=== PATIENT | female | born 1985 | race Hispanic/Latino ===

== ENCOUNTER 2018-04-03 19:24 | Emergency (ER) | payer MEDICAID, OTHER ==
[2018-04-03 19:33] VITALS: TEMP 98
[2018-04-03] MEDS ORDERED: Oxycodone/Acetaminophen 5/325 mg Tab PO ONE (20:29)
[2018-04-03] MEDS ORDERED: Oxycodone/Acetaminophen 5/325 mg Tab ONE (20:34)
--- NOTE | 2018-04-03 22:04 | ED PDOC ---
HPI: Trauma/Fall - HPI Time Seen by Provider: 04/03/18 20:00 Chief Complaint (Nursing): Trauma Chief Complaint (Provider): Fall History Per: Patient History/Exam Limitations: no limitations Injury Occurred (Timing): Just Before Arrival Location Of Injury: Left: Elbow, Foot Additional Complaint(s): 32 year old female with a history of rheumatoid arthritis presents to the ED with left sided foot and elbow pain s/p fall that occurred minutes prior to arrival. Patient was mopping and slipped on left side, hitting her elbow. Took no medications for pain. Patient offers no other complaints. PMD: Dr. cassie Arceo Past Medical History Reviewed: Historical Data, Nursing Documentation, Vital Signs Vital Signs: Last Vital Signs Temp 98 F 04/03/18 19:30 Pulse 89 04/04/18 06:05 Resp 16 04/04/18 06:05 BP 121/82 04/04/18 06:05 Pulse Ox 96 04/04/18 06:05 - Surgical History Surgical History: No Surg Hx - Family History Family History: States: Unknown Family Hx - Social History Current smoker - smoking cessation education provided: No Alcohol: None Drugs: Denies - Home Medications Home Medications: Ambulatory Orders Medication Instructions Recorded traMADol [Ultram] 50 mg PO Q6 PRN #16 tab 04/04/18 - Allergies Allergies/Adverse Reactions: Allergies Allergy/AdvReac Type Severity Reaction Status Date / Time acetaminophen [From Vicodin] Allergy RASH Verified 04/03/18 19:30 hydrocodone [From Vicodin] Allergy RASH Verified 04/03/18 19:30 Review of Systems Musculoskeletal: Positive for: Arm Pain (left elbow ), Foot Pain (left foot ) Physical Exam - Reviewed Nursing Documentation Reviewed: Yes Vital Signs Reviewed: Yes - Physical Exam Appears: Positive for: Non-toxic, No Acute Distress Head Exam: Positive for: ATRAUMATIC, NORMAL INSPECTION, NORMOCEPHALIC Skin: Positive for: Normal Color, Warm, DRY Eye Exam: Positive for: EOMI, Normal appearance, PERRL ENT: Positive for: Normal ENT Inspection Neck: Positive for: Normal Cardiovascular/Chest: Positive for: Regular Rate, Rhythm Respiratory: Positive for: Normal Breath Sounds Gastrointestinal/Abdominal: Positive for: Soft Extremity: Positive for: Normal ROM (normal ROM at left foot; no swelling or limitation of ROM of left foot or ankle. neurovascular intact. L elbow appears deformed possible dislocated. neurovascular intact, pulses 2+, normal temp, warm and dry. cap refill less than 2 sec.) Neurologic/Psych: Positive for: Alert, Oriented - Laboratory Results Result Diagrams: 04/03/18 22:29 04/03/18 22:29 - ECG O2 Sat by Pulse Oximetry: 100 ( ) Pulse Ox Interpretation: Normal Medical Decision Making Medical Decision Making: Time: 20:29 Impression: left foot and elbow pain rule out fracture and dislocation. Initial Plan; --Left elbow x-ray --Left foot x-ray --Percocet 1 tab PO 22:29 --CBC --CMP --Beta HCG --Morphine 4 mg IV pt states she is only allergic to VICODIN, not PERCOCET MORPHINE OR DILAUDID Time: 22:44 ([facility] reading) Left Foot xr FINDINGS: Bones/joints: No acute fracture. Normal alignment. No ankle effusion. Metallic plate and screws transfixing the distal fibula and lateral malleolus. No evident acute hardware complications. Soft tissues: No evident soft tissue swelling. No radiopaque foreign body. IMPRESSION: No acute fracture or malalignment. Time: 22:51 XR Elbow FINDINGS: Limitations: Evaluation is limited by the single projection of the images. Bones/joints: There is complete dislocation of the proximal radius and ulna relative to the humerus. The supracondylar region of the humerus is superimposed on the olecranon process of the ulna, consistent with posterior dislocation as well as presumed medial or lateral dislocation. Linear lucency in the radial head on image 1 is highly suspicious for an associated radial head fracture. Soft tissues: Mild soft tissue edema along the dorsal aspect of the elbow. No radiopaque foreign body. IMPRESSION: Complete left elbow dislocation and probable associated radial head fracture. Time: 22;40 --Consulted Dr. Guy, orthopedist control systems designer, who recommend setting dislocation by writer producer, a CT post procedure and overnight admission to hospital. Yu viewed images and does not think that there is a fracture. 23:00 informed pt of results and need for closed relocation by me. will need conscious sedation. 2330 Pt informed me that the last time she ate was just right before I came in, she states that her female contracts advisor brought in chicken nuggets from outside and then she threw them out (so not apparent to staff). Explained that that limits the sedation we can use. [address] Vick bailey. We will need to wait til at least 3 am for sedation. I attempted once after giving pt the dilaudid, however, it was unsuccesful given lack of complete pain control. Time: 00:[address] Gutierrez pending orthopedic consult/conscious sedation after pt NPO for 4 hours. pt aware of plan. ---- Scribe Attestation: Documented by Antonieta Harrington, acting as a scribe for Paula Grace MD Provider Scribe Attestation: All medical record entries made by the Scribe were at my direction and personally dictated by me. I have reviewed the chart and agree that the record accurately reflects my personal performance of the history, physical exam, medical decision making, and the department course for this patient. I have also personally directed, reviewed, and agree with the discharge instructions and disposition. Disposition - Clinical Impression Clinical Impression: Dislocation of elbow - Patient ED Disposition Is Patient to be Admitted: Transfer of Care - Disposition Disposition: Transfer of Care Disposition Time: 00:30 Condition: IMPROVED Patient Signed Over To: Mejia Gutierrez Handoff Comments: pending conscious sedation/possible re consult orthopedic consult
[2018-04-03 22:59] LABS: BASO # 0.1 K/uL (0.0-0.2); BASO % 0.4 % (0.0-2.0); EOS % 0.1 % (0.0-4.0); HEMOGLOBIN 13.3 g/dL (12.0-16.0); LYMPH # 1.7 K/uL (1.0-4.3); LYMPH % 10.8 % (20.0-40.0); MEAN CELL VOLUME 92.8 fl (81.0-99.0); MEAN CORPUSCULAR HEMOGLOBIN 30.6 pg (27.0-31.0); MONO # 0.5 K/uL (0.0-0.8); MONO % 3.3 % (0.0-10.0); NEUT # 13.3 K/uL (1.8-7.0); NEUT % 85.4 % (50.0-75.0); RBC 4.35 Mil/uL (3.80-5.20); RED CELL DISTRIBUTION WIDTH 13.6 % (11.5-14.5); WHITE BLOOD COUNT 15.5 K/uL (4.8-10.8)
[2018-04-03 23:09] LABS: ALB/GLOB RATIO 1.2 (1.0-2.1); ALBUMIN 4.6 g/dL (3.5-5.0); CALCIUM 9.1 mg/dL (8.4-10.2); GFR NON-AFRICAN AMERICAN > 60
[2018-04-03 23:10] LABS: ALT/SGPT 37 U/L (9-52); AST/SGOT 43 U/L (14-36); BLOOD UREA NITROGEN 17 mg/dl (7-17)
[2018-04-03] MEDS ORDERED: HYDROmorphone 0.5 mg/0.5 ml ISec IVP STA (23:16)
--- NOTE | 2018-04-03 23:56 | CP.PCM.HP ---
Past Patient History - Past Social History Alcohol: None Drugs: Denies Meds Allergies/Adverse Reactions: Allergies Allergy/AdvReac Type Severity Reaction Status Date / Time acetaminophen [From Vicodin] Allergy RASH Verified 04/03/18 19:30 hydrocodone [From Vicodin] Allergy RASH Verified 04/03/18 19:30 Results - Vital Signs Recent Vital Signs: Last Vital Signs Temp 98 F 04/03/18 19:30 Pulse 97 H 04/03/18 23:36 Resp 19 04/03/18 23:36 BP 118/82 04/03/18 23:36 Pulse Ox 96 04/03/18 23:36 - Labs Result Diagrams: 04/03/18 22:29 04/03/18 22:29 Labs: Laboratory Results - last 24 hr 04/03/18 04/03/18 22:29 22:29 WBC 15.5 H RBC 4.35 Hgb 13.3 Hct 40.3 MCV 92.8 MCH 30.6 MCHC 33.0 RDW 13.6 Plt Count 411 H MPV 8.0 Neut % (Auto) 85.4 H Lymph % (Auto) 10.8 L Isabella % (Auto) 3.3 Eos % (Auto) 0.1 Baso % (Auto) 0.4 Neut # (Auto) 13.3 H Lymph # (Auto) 1.7 Isabella # (Auto) 0.5 Eos # (Auto) 0.0 Baso # (Auto) 0.1 Sodium 137 Potassium 4.9 Chloride 101 Carbon Dioxide 22 Anion Gap 19 BUN 17 Creatinine 0.6 L Est GFR ( Amer) > 60 Est GFR (Non-Af Amer) > 60 Random Glucose 168 H Calcium 9.1 Total Bilirubin 0.6 AST 43 H ALT 37 Alkaline Phosphatase 92 Total Protein 8.3 H Albumin 4.6 Globulin 3.7 Albumin/Globulin Ratio 1.2 Beta HCG, Quant < 2.39 Assessment & Plan - Date & Time Date: 04/03/18 Time: 23:56
--- NOTE | 2018-04-04 00:38 | ED PDOC ---
- Laboratory Results Result Diagrams: 04/03/18 22:29 04/03/18 22:29 - ECG O2 Sat by Pulse Oximetry: 100 ( ) - Critical Care Total Time (In Min): 60 Medical Decision Making Medical Decision Makin:30 Patient endorsed to me by Dr. Grace pending orthopedic consult. 03:53 Left elbow successfully reduced without complication. Scribe Attestation: Documented by Leo Purvis, acting as a scribe for Mejia Gutierrez MD. Provider Scribe Attestation: All medical record entries made by the Scribe were at my direction and personally dictated by me. I have reviewed the chart and agree that the record accurately reflects my personal performance of the history, physical exam, medical decision making, and the department course for this patient. I have also personally directed, reviewed, and agree with the discharge instructions and disposition. Disposition - Clinical Impression Clinical Impression: Elbow fracture, left, Dislocation of elbow - POA Present On Arrival: None, Falls Or Trauma - Disposition Disposition: Routine/Home Disposition Time: 05:35 Condition: IMPROVED Procedures - Orthopedic Joint Reduction Joint #1 Consent Obtained: verbal consent, written consent Time Out Performed: Yes Side: left Joint Reduction Location: elbow Analgesia: procedural sedation (1mg Dilauded, 100mg Propofol with moderate to deep sedation) Technique Used: traction/counter-traction, direct manipulation Post-Reduction Neuro Exam: intact Post-Reduction Vascular Exam: intact Post Reduction X-Ray Obtained: Yes Post Reduction X-Ray Results: reduced Splint Applied: Yes (posterior splint and sling applied) Patient Tolerated Procedure: well, no complications Additional comments: Informed consent, after discussion of the risks, benefits, and alternatives to the procedure, was obtained. A timeout to verify the correct patient, procedure, and site was performed immediately prior to the procedure. Left elbow dislocation was successfully reduced. Patient tolerated procedure well. ED Procedural Sedation - Pre Anesthesia Assessment Chief Complaint: Trauma Past Medical History: Medications Reviewed, Allergies Reviewed, Record Review - Physical Exam/Review of Systems Vital Signs Reviewed: Yes Cardiovascular: Regular Rate and Rhythm, Murmurs, Normal S1, S2 Respiratory/Chest: Clear to Auscultation, Good Air Exchange. denies: Respiratory Distress, Accessory Muscle Use Neurological: GCS=15, CN II-XII Intact, Speech Normal Abdomen: Normal Bowel Sounds. denies: Tenderness, Distention, Peritoneal Signs Mental Status: Alert and Oriented X 3 - Pre-Procedure Airway Assessment History of difficult intubation or surgical airway(i.e trach: No Inability to extend neck:: No Mouth opening less than two finger breadth:: No Diagnosis of sleep apnea:: No Less than three finger breadth to hyoid bone:: No ASA Criteria: 1 - Healthy, normal. 2 - Mild systemic disease (No functional limitations, mildline obesity, DM withot complications, Hypertention). 3 - Severe systemic disease (Some functional limitation, stable angina, morbid obesity, controlled COPD/Asthma/CHF). 4 - Sever systemic disease constant threat to life (Unstable angina, active symptoms of COPD/Asthma, CHF/ Hypertension. 5 - Moribund ASA Clarification: ASA I Mallampati (airway): Class I - Intra-Procedure (Medications) Medications Given: Discontinued Medications Hydromorphone HCl (Dilaudid) 1 mg IVP STAT STA Stop: 04/03/18 23:17 Last Admin: 04/03/18 23:23 Dose: [address] [facility] Pain Assessment Document 04/03/18 23:23 [facility] (Rec: 04/03/18 23:24 [id number][facility] Pain Reassessment Is this a pain reassessment? Yes Sleep Is patient sleeping during reassessment? No Presence of Pain Presence of Pain Yes Location Left, Right or Bilateral Left IVP Administration Document 04/03/18 23:23 [facility] (Rec: 04/03/18 23:24 [id number][facility] Charges for Administration # of IVP Administrations 1 Re-Assess: BRIGITTE Pain Assessment Document 04/04/18 00:23 [facility] (Rec: 04/04/18 03:57 [id number]) Pain Reassessment Is this a pain reassessment? Yes Sleep Is patient sleeping during reassessment? No Presence of Pain Presence of Pain Yes Location Left, Right or Bilateral Left Pain Location Body Site Elbow Description Description Sharp Pain Behavior Moaning Pain not relieved and LIP/MD was Yes notified Hydromorphone HCl (Dilaudid) 1 mg IVP STAT STA Stop: 04/03/18 23:50 Last Admin: 04/03/18 23:58 Dose: [address] [facility] Pain Assessment Document 04/03/18 23:58 [facility] (Rec: 04/03/18 23:58 [facility] [id number]) Pain Reassessment Is this a pain reassessment? Yes Sleep Is patient sleeping during reassessment? No Presence of Pain Presence of Pain Yes Location Left, Right or Bilateral Left Pain Location Body Site Elbow Description Description Sharp IVP Administration Document 04/03/18 23:58 [facility] (Rec: 04/03/18 23:58 [facility] [id number]) Charges for Administration # of IVP Administrations 1 Re-Assess: [facility] Pain Assessment Document 04/04/18 00:58 [facility] (Rec: 04/04/18 03:57 [id number]) Pain Reassessment Is this a pain reassessment? Yes Sleep Is patient sleeping during reassessment? No Presence of Pain Presence of Pain Yes Location Left, Right or Bilateral Left Description Description Sharp Pain Behavior Moaning Pain not relieved and LIP/MD was Yes notified Hydromorphone HCl (Dilaudid) 1 mg IV STAT STA Stop: 04/04/18 03:23 Last Admin: 04/04/18 03:28 Dose: 1 mg eMAR Start Stop Document 04/04/18 03:28 [facility] (Rec: 04/04/18 03:29 [id number]) Intravenous Solution Start Date 04/04/18 Start Time 03:28 End Date 04/04/18 End time 03:29 Total Infusion Time 1 NOV Pain Assessment Document 04/04/18 03:28 [facility] (Rec: 04/04/18 03:29 [id number]) Pain Reassessment Is this a pain reassessment? Yes Sleep Is patient sleeping during reassessment? No Presence of Pain Presence of Pain Yes Location Left, Right or Bilateral Left Pain Location Body Site Elbow Sodium Chloride (Sodium Chloride 0.9%) 1,000 mls @ 1,000 mls/hr IV .Q1H STA Stop: 04/04/18 04:13 Last Admin: 04/04/18 03:29 Dose: 1,000 mls/hr eMAR Start Stop Document 04/04/18 03:29 [facility] (Rec: 04/04/18 03:29 [id number]) Intravenous Solution Start Date 04/04/18 Start Time 03:29 Morphine Sulfate (Morphine) 4 mg IV ONCE ONE Stop: 04/03/18 22:16 Last Admin: 04/03/18 22:28 Dose: 4 mg eMAR Start Stop Document 04/03/18 22:28 [facility] (Rec: 04/03/18 22:32 [id number]) Intravenous Solution Start Date 04/03/18 Start Time 22:28 End Date 04/03/18 End time 22:32 Total Infusion Time 4 MAR Pain Assessment Document 04/03/18 22:28 [facility] (Rec: 04/03/18 22:32 [id number]) Pain Reassessment Is this a pain reassessment? Yes Sleep Is patient sleeping during reassessment? No Presence of Pain Presence of Pain Yes Location Left, Right or Bilateral Left Pain Location Body Site Elbow Description Description Sharp Pain Behavior Moaning Re-Assess: [facility] Pain Assessment Document 04/03/18 23:28 [facility] (Rec: 04/03/18 23:59 [facility] [id number]) Pain Reassessment Is this a pain reassessment? Yes Sleep Is patient sleeping during reassessment? No Presence of Pain Presence of Pain Yes Location Left, Right or Bilateral Left Ondansetron HCl (Zofran Inj) 4 mg IV STAT STA Stop: 04/04/18 03:15 Last Admin: 04/04/18 03:28 Dose: 4 mg eMAR Start Stop Document 04/04/18 03:28 [facility] (Rec: 04/04/18 03:28 [id number]) Intravenous Solution Start Date 04/04/18 Start Time 03:28 End Date 04/04/18 End time 03:28 Total Infusion Time 0 Ondansetron HCl (Zofran Inj) 4 mg IV STAT STA Stop: 04/04/18 03:48 Last Admin: 04/04/18 03:29 Dose: 4 mg eMAR Start Stop Document 04/04/18 03:29 [facility] (Rec: 04/04/18 03:58 [id number]) Intravenous Solution Start Date 04/04/18 Start Time 03:29 End Date 04/04/18 End time 03:29 Total Infusion Time 0 Oxycodone/Acetaminophen (Percocet 5/325 Mg Tab) 1 tab PO ONCE ONE Stop: 04/03/18 20:30 Last Admin: 04/03/18 20:36 Dose: [address] [facility] Pain Assessment Document 04/03/18 20:36 [facility] (Rec: 04/03/18 20:36 [id number]) Pain Reassessment Is this a pain reassessment? No Presence of Pain Presence of Pain Yes Location Left, Right or Bilateral Left Pain Location Body Site Elbow Foot Re-Assess: [facility] Pain Reassessment Document 04/03/18 21:36 [facility] (Rec: 04/03/18 22:35 [facility] [id number]) Sleep Is patient sleeping during reassessment? No Pain Reassessment Pain not relieved and LIP/MD was Yes notified Left, Right or Bilateral Left Pain Location Body Site Elbow Propofol (Diprivan) 100 mg IV ONCE ONE Stop: 04/04/18 03:48 Last Admin: 04/04/18 03:31 Dose: 100 mg eMAR Start Stop Document 04/04/18 03:31 [facility] (Rec: 04/04/18 03:57 [id number]) Intravenous Solution Start Date 04/04/18 Start Time 03:31 End Date 04/04/18 End time 03:33 Total Infusion Time 2 Renee Agitation Sedation Document 04/04/18 03:31 [facility] (Rec: 04/04/18 03:57 [id number]) Reene Agitation Sedation Scale Renee Agitation Sedation Scale Score +1 Restless Anxious but movements not aggressive vigorous - Post-Procedure Post Procedure Note: After informed consent obtained, patient was placed on ETCO2 monitor. Patient given IV Dilaudid 1 mg and 100mg Propofol with deep sedation achieved. Patient tolerated procedure well, without any untoward side effects.
[2018-04-04] MEDS ORDERED: Propofol 10 mg/ml Inj (20 ML) IV ONE ×2 (03:13→03:47)
[2018-04-04] MEDS ORDERED: Sodium Chloride 0.9% 1,000 ML IV STA (03:14)
[2018-04-04 04:02] VITALS: BP 121/82; PULSE 89; RESP 16
--- NOTE | 2018-04-04 10:08 | CT ---
Date of service: 04/04/2018 PROCEDURE: CT left elbow HISTORY: elbow study COMPARISON: None available TECHNIQUE: 2.5 mm contiguous axial sections were acquired through the left elbow. Sagittal and coronal images were reformatted from the axial scan. FINDINGS: The patient is status post successful closed reduction of a previously noted complete dislocation. There is no evidence of fracture. There are no intra-articular bony fragments identified. There is no gross evidence of hemarthrosis. No soft tissue fluid collection is identified. IMPRESSION: Successful close reduction of left elbow dislocation. No evidence of fracture. The preliminary findings for this examination were reported by [facility] at 5:45 a.m. on 04/04/2018. There is concurrence of this report with the preliminary findings.
--- NOTE | 2018-04-04 10:31 | RAD ---
Date of service: 04/04/2018 PROCEDURE: Radiographs of the left elbow. HISTORY: post-reduction COMPARISON: 04/04/2018 at 12:05 a.m. FINDINGS: BONES: Successful close reduction. No evidence of fracture. Soft tissue swelling noted about the ulnar aspect of the elbow JOINTS: Normal. No osteoarthritis. SOFT TISSUES: Normal. JOINT EFFUSION: None. OTHER FINDINGS: None IMPRESSION: Close reduction. No evidence of fracture.
--- NOTE | 2018-04-04 10:44 | RAD ---
Date of service: 04/03/2018 PROCEDURE: Left Foot Radiographs. HISTORY: pain sp fall COMPARISON: None. FINDINGS: BONES: No fracture identified No evidence of orthopedic hardware failure. JOINTS: Normal. SOFT TISSUES: Normal. OTHER FINDINGS: None. IMPRESSION: No acute findings related to/accounting for the clinical presentation. Concordant findings (preliminary report) provided by [facility].
--- NOTE | 2018-04-04 10:44 | RAD ---
Date of service: 04/03/2018 PROCEDURE: Radiographs of the left elbow. HISTORY: fall COMPARISON: No prior. FINDINGS: BONES: Left radial head fracture. JOINTS: Dislocation of the radial head and olecranon from the distal humerus. SOFT TISSUES: Normal. JOINT EFFUSION: None. OTHER FINDINGS: None IMPRESSION: Acute Fracture dislocation described above. Concordant findings (preliminary report) provided by [facility].
--- NOTE | 2018-04-04 10:47 | RAD ---
Date of service: 04/04/2018 PROCEDURE: Left elbow HISTORY: post-reduction COMPARISON: None available TECHNIQUE: Two views of the left elbow are submitted. FINDINGS: There is complete dislocation of the left elbow with ventral medial displacement of the distal humerus relative to the olecranon fossa. No definite fracture identified. Tiny questionable os ossific densities are seen adjacent to the radial head in the lateral view only. These could represent intra-articular bony fragments. IMPRESSION: Complete dislocation left elbow. Questionable tiny ossific densities adjacent to radial head in lateral view. Further evaluation advised.
--- NOTE | 2018-04-04 10:49 | RAD ---
Date of service: 04/03/2018 PROCEDURE: Left elbow, limited HISTORY: post reduction COMPARISON: 04/03/2018 at 9:09 p.m. TECHNIQUE: Single AP view FINDINGS: Complete dislocation. No definite fracture identified. IMPRESSION: Complete dislocation left elbow. Unsuccessful reduction.
[2018-04-05 11:11] VITALS: O2SAT 100
== END 2018-04-04 06:06 | disposition home or self-care (01) ==
LOC: H.ER 19:24 → H.EROBSV 23:53 → UNDOADMOB 23:53 → UNDODISOB 04-04 06:06
DX: S53.105A Unspecified dislocation of left ulnohumeral joint, initial encounter (principal); W01.0XXA Fall on same level from slipping, tripping and stumbling without subsequent striking against object, initial encounter; Y93.E5 Activity, floor mopping and cleaning
CPT/HCPCS: 24655; 73070; 73080; 73200; 73630; 80053; 81025; 84702; 85025; 96374; 96375; 96376; 99284; J1170; J2270; J2405; J2704; J7030